=== PATIENT | female | born 1955 | race Caucasian/White ===

== ENCOUNTER → 2016-07-05 | Outpatient (CLI) | payer BC ==
[~2016-07-05] MED LIST: CLX20 PO; DTR5 PO; LOSA50TA6 PO; PANT40TA PO
--- NOTE | 2016-07-06 13:02 | MAMMOGRAPHY REPORT ---
BILATERAL DIGITAL SCREENING MAMMOGRAM WITH CAD: 07/05/2016 CLINICAL HISTORY: Routine screening. Patient has no complaints. TECHNIQUE: Bilateral CC and MLO views with repeat MLO views for more anterior compression were obtai gwen. Current study was also evaluated with a Computer Aided Detection (CAD) system. COMPARISON: Comparison is made to exams dated: 07/02/2015 mammogram - [facility], 06/23/2013 mammogram, 06/30/2012 mammogram, 02/01/2011 mammogram, 12/29/2009 mammogram, and 12/09/2008. BREAST COMPOSITION: There are scattered areas of fibroglandular density in both breasts. FINDINGS: There is a 12 mm lobulated mass in the upper inner anterior right breast that is unchange d mammographically dating back to at least 10/18/2006, therefore likely benign. No new suspicious ma ss, architectural distortion or cluster of microcalcifications is seen. IMPRESSION: ACR BI-RADS CATEGORY 2: BENIGN There is no mammographic evidence of malignancy. A 1 year screening mammogram is recommended. The p atient will receive written notification of the results. Approximately 10% of breast cancers are not detected with mammography. A negative mammographic repor t should not delay biopsy if a clinically suggestive mass is present. Corinne Manzo M.D. ay/:07/05/2016 15:16:00 Gem Carver: Brenna MALONE(Karyn)(Henri)(BD), [facility] letter sent: Normal 1/2 BI-RADS Code: ACR BI-RADS Category 2: Benign
== END | disposition home or self-care (01) ==
LOC: C.MAMM 14:41
PROVIDERS: ATTEND Internal Medicine
DX: Z12.31 Encounter for screening mammogram for malignant neoplasm of breast (principal)

== ENCOUNTER → 2016-09-24 | Outpatient (CLI) | payer BC ==
--- NOTE | 2016-09-24 08:19 | DIAGNOSTIC IMAGING REPORT ---
L-SPINE MIN 4 VIEWS ROUTINE CLINICAL HISTORY: Low back pain. Right leg weakness. COMPARISON STUDY: 12/27/2012 FINDINGS: There is a mild lumbar levoscoliosis. There are no acute fractures. There are mild multilevel degenerative changes. No subluxations are visualized. No destructive lesions are evident. IMPRESSION: Mild multilevel degenerative change. No fractures, subluxations, or destructive lesions are visualized Electronically signed by: Wu Allen M.D. 09/24/2016 8:17 AM Dictated Date/Time: 09/24/2016 8:17 AM
--- NOTE | 2016-09-24 08:21 | DIAGNOSTIC IMAGING REPORT ---
THORACIC SPINE 3 VIEWS ROUTINE CLINICAL HISTORY: Back pain. COMPARISON STUDY: 05/27/2013 FINDINGS: There are postsurgical changes present within the cervical spine. There is a mild spinal curvature convex to the right. There are no acute fractures. There are no subluxations. No destructive lesions are evident. There are mild multilevel degenerative changes. IMPRESSION: Mild multilevel degenerative change. No fractures, subluxations, or destructive lesions are visualized. Electronically signed by: Wu Allen M.D. 09/24/2016 8:20 AM Dictated Date/Time: 09/24/2016 8:20 AM
--- NOTE | 2016-09-24 08:22 | DIAGNOSTIC IMAGING REPORT ---
CHEST 2 VIEWS ROUTINE CLINICAL HISTORY: Cough, shortness of breath. COMPARISON STUDY: 10/10/2015 FINDINGS: The cardiac and mediastinal contours are normal. There is no evidence of focal pulmonary consolidation. There is no evidence of failure. No pleural effusions are visualized.[ There are postsurgical changes present within the cervical spine. IMPRESSION: No active disease in the chest. Electronically signed by: Wu Allen M.D. 09/24/2016 8:21 AM Dictated Date/Time: 09/24/2016 8:21 AM
--- NOTE | 2016-09-24 08:22 | DIAGNOSTIC IMAGING REPORT ---
CERVICAL SPINE 6 VIEWS HISTORY: Pain M54.9 Back [id number] COMPARISON: None. FINDINGS: The cervical spine is visualized from C1 through the superior endplate of T1. There is no fracture. No subluxation. Moderate degenerative disc change throughout read findings of an anterior cervical fusion C6-C7. Minimal osteophytic narrowing of the neuroforamina bilaterally from C5 through C7. IMPRESSION: Moderate degenerative and postoperative changes as described. No acute process. Electronically signed by: John Mo M.D. 09/24/2016 8:21 AM Dictated Date/Time: 09/24/2016 8:20 AM
== END | disposition home or self-care (01) ==
LOC: C.RAD 07:28
PROVIDERS: ATTEND Physician Assistant Medical
DX: R05 Cough (principal); M47.812 Spondylosis without myelopathy or radiculopathy, cervical region; M47.816 Spondylosis without myelopathy or radiculopathy, lumbar region; M47.814 Spondylosis without myelopathy or radiculopathy, thoracic region; Z98.1 Arthrodesis status

== ENCOUNTER → 2016-11-01 | Outpatient (CLI) | payer BC | END | disposition home or self-care (01) | LOC: C.PAPS 11:01 | PROVIDERS: ATTEND Physician Assistant | DX: Z01.419 Encounter for gynecological examination (general) (routine) without abnormal findings (principal) ==

== ENCOUNTER → 2017-01-27 | Outpatient (CLI) | payer BC ==
[2017-01-27 17:37] LABS: URINE APPEARANCE CLEAR (CLEAR); URINE BILIRUBIN NEG (NEG); URINE COLOR YELLOW; URINE NITRITE NEG (NEG); URINE PH 6.5 (4.5-7.5); URINE SPECIFIC GRAVITY 1.014 (1.000-1.030); UROBILINOGEN NEG (NEG)
[2017-01-27 17:46] LABS: MANUAL MICROSCOPIC REQUIRED? NO; REVIEW REQ? NO
== END | disposition home or self-care (01) ==
LOC: C.LABBFT 15:35
PROVIDERS: ATTEND Physician Assistant Medical
DX: R39.9 Unspecified symptoms and signs involving the genitourinary system (principal); K59.00 Constipation, unspecified

== ENCOUNTER → 2017-04-04 | Outpatient (CLI) | payer BC ==
--- NOTE | 2017-04-04 15:09 | DIAGNOSTIC IMAGING REPORT ---
MRI OF THE LUMBAR SPINE WITHOUT IV CONTRAST CLINICAL HISTORY: Low back pain of several months duration. Bilateral leg pain. COMPARISON STUDY: Radiographs of the lumbar spine dated 03/23/2017. TECHNIQUE: MRI of the lumbar spine is performed utilizing various T1 and T2-weighted sequences in the axial and sagittal planes. IV contrast was not administered for this examination. The examination is degraded by motion artifact. FINDINGS: Lumbar spine: Vertebral body height and alignment are maintained throughout the lumbar spine. Marrow signal intensity is heterogeneous. The transverse and spinous processes appear intact. There is no evidence of spondylolysis. There is degenerative endplate edema seen at L3-L4 and L5-S1. No destructive bony lesion is identified. Tiny anterior osteophytes are seen throughout. Intervertebral discs: Degenerative disc desiccation and loss of height is seen throughout the lumbar spine. Loss of height is obdk-ly-pzcjsqww at L3-L4 and L4-L5. Spinal cord: The partially imaged spinal cord is normal in morphology and signal intensity. The conus medullaris terminates at the level of L1. The nerve roots of the cauda equina are normal in morphology. L1-L2: Unremarkable. L2-L3: There is a tiny posterior disc osteophyte complex. The central canal and neural foramina are patent. L3-L4: There is broad-based posterior disc bulge and annular fissure. In conjunction with hypertrophy of the ligamentum flavum, this causes fxyaofwe-ob-bsegjt central canal stenosis at this level. The minimum AP diameter measures 5 mm. There is subarticular stenosis, and the disc bulge may abut the exiting bilateral L3 and the transiting bilateral L4 nerve roots. The neural foramina are patent. L4-L5: There is minimal posterior disc bulge. No significant central canal stenosis is seen. There is mild bilateral subarticular stenosis. The disc bulge may abut the transiting bilateral L5 nerve roots. The neural foramina are patent. L5-S1: The central canal is widely patent. Facet arthropathy causes xwlg-ir-xcxjhlcp left neural foraminal stenosis. Sacrum: The visualized sacrum is normal in morphology and signal intensity. Soft tissues: The paraspinous soft tissues are within normal limits. The partially imaged retroperitoneal structures are grossly unremarkable but incompletely assessed. IMPRESSION: 1. Degenerative disc disease as above with endplate edema at L3-L4 and L5-S1. 2. Lumbosacral spondylosis as above with awglcizt-zf-ofzxex central canal stenosis at L3-L4. See discussion for detailed uyhbw-oi-nulrw analysis. 3. No destructive bony lesion is identified. Dictated: 04/04/2017 2:45 PM Transcribed: 04/04/2017 3:09 PM MERVIN_Luna Electronically signed by: Poncho Perez M.D. 04/04/2017 3:17 PM Dictated Date/Time: 04/04/2017 2:45 PM
== END | disposition home or self-care (01) ==
LOC: C.MRI 13:14
PROVIDERS: ATTEND Orthopaedic Surgery Orthopaedic Surgery of the Spine
DX: M48.061 Spinal stenosis, lumbar region without neurogenic claudication (principal)

== ENCOUNTER → 2017-07-08 | Outpatient (CLI) | payer OTHER ==
--- NOTE | 2017-07-11 08:08 | MAMMOGRAPHY REPORT ---
BILATERAL DIGITAL SCREENING MAMMOGRAM TOMOSYNTHESIS WITH CAD: 07/08/2017 CLINICAL HISTORY: Routine screening. Patient has no complaints. TECHNIQUE: Breast tomosynthesis in addition to standard 2D mammography was performed. Current study was also evaluated with a Computer Aided Detection (CAD) system. COMPARISON: Comparison is made to exams dated: 07/05/2016 mammogram, 07/02/2015 mammogram - [facility], 06/23/2013 mammogram, 06/30/2012 mammogram, 02/01/2011 mammogram, and 12/29/2009 mammo gram. BREAST COMPOSITION: There are scattered areas of fibroglandular density in both breasts. FINDINGS: There is a benign, gently lobulated and circumscribed 12 mm mass in the 12:00 right breast , that is stable in size dating back to at least 12/29/2009, therefore likely benign. There is also stable asymmetry in the lateral right breast. No new suspicious mass, architectural distortion or clu ster of microcalcifications is seen. IMPRESSION: ACR BI-RADS CATEGORY 2: BENIGN There is no mammographic evidence of malignancy. A 1 year screening mammogram is recommended. The pa tient will receive written notification of the results. Approximately 10% of breast cancers are not detected with mammography. A negative mammographic report should not delay biopsy if a clinically suggestive mass is present. Corinne Manzo M.D. ay/:07/08/2017 15:01:30 Service Consultant: Ileana Armenta, [facility] letter sent: Normal 1/2 BI-RADS Code: ACR BI-RADS Category 2: Benign
== END | disposition home or self-care (01) ==
LOC: C.MAMM 14:37
PROVIDERS: ATTEND Internal Medicine
DX: Z12.31 Encounter for screening mammogram for malignant neoplasm of breast (principal)

== ENCOUNTER 2017-09-22 08:17 | Observation (INO) | payer OTHER ==
[2017-09-02 08:07] VITALS: Ht 165.1 cm; Wt 105.4 kg
--- NOTE | 2017-09-02 08:36 | PAT Medication Instructions ---
Service Date Sep 02, 2017. Current Home Medication List Citalopram (Citalopram Hydrobromide), 20 MG PO QAM Hydrochlorothiazide (Hctz), 25 MG PO QAM Losartan Potassium (Cozaar), 100 MG PO QAM Oxybutynin Chloride (Oxybutynin Chloride), 5 MG PO QAM Pantoprazole (Protonix), 2 TAB PO QAM Medication Instructions For Your Scheduled Surgery - Hold the following medications the morning of surgery: Hydrochlorothiazide (Hctz), 25 MG PO QAM Losartan Potassium (Cozaar), 100 MG PO QAM Oxybutynin Chloride (Oxybutynin Chloride), 5 MG PO QAM - Take the following medications the morning of surgery with a sip of water: Citalopram (Citalopram Hydrobromide), 20 MG PO QAM Pantoprazole (Protonix), 2 TAB PO QAM If you have any questions please call us at [phone] or [phone] or [phone]
[2017-09-02 09:27] LABS: BASO % 0.6 %; BASO ABS # 0.04 K/uL (0-0.2); EOS % 2.4 %; EOS ABS # 0.15 K/uL (0-0.5); HEMATOCRIT 45.3 % (37-47); HEMOGLOBIN 15.5 g/dL (12.0-16.0); IG# 0.01 K/uL (0.00-0.02); LYMPH % 29.3 %; LYMPH ABS # 1.83 K/uL (1.2-3.4); MEAN CORPUSCULAR HEMOGLOBIN 30.1 pg (25-34); MEAN CORPUSCULAR HGB CONC 34.2 g/dl (32-36); MEAN PLATELET VOLUME 11.6 fL (7.4-10.4); MONO % 8.6 %; MONO ABS # 0.54 K/uL (0.11-0.59); NEUT % 58.9 %; NEUT ABS # 3.68 K/uL (1.4-6.5); PLATELET COUNT 258 K/uL (130-400); RED CELL DISTRIBUTION WIDTH CV 13.8 % (11.5-14.5); RED CELL DISTRIBUTION WIDTH SD 44.8 fL (36.4-46.3); WHITE BLOOD COUNT 6.25 K/uL (4.8-10.8)
[2017-09-02 09:43] LABS: INR 0.9 (0.9-1.1); PTT PATIENT 25.1 SECONDS (21.0-31.0)
--- NOTE | 2017-09-21 19:13 | HISTORY & PHYSICAL EXAMINATION ---
DATE OF ADMISSION: 09/22/2017 CHIEF COMPLAINT: Back pain, lower extremity difficulty, numbness and tingling, paresthesias with a working diagnosis of severe stenosis 3-4 and 4-5. Shalonda is delightful 61 years of age. She has battled the extremity difficulty for some time along with mechanical low back pain. She is an excellent candidate for surgical intervention. We have exhausted all conservative measures. She would like to pursue surgery. PAST MEDICAL HISTORY: Rheumatoid arthritis, hypertension, obesity. PAST SURGICAL HISTORY: Cervical spine surgery. ALLERGIES: Negative. FAMILY HISTORY: Heart disease and cervical carcinoma. SOCIAL HISTORY: She is . No alcohol, tobacco. Moderately active. REVIEW OF SYSTEMS: A 12 system review no fevers, sweats, chills. Ear, nose and throat negative. Denies chest pain, palpitations. No nausea, vomiting. She has had frequency of urination, but no loss of bowel or bladder function. Denies memory loss, confusion, skin rashes. Musculoskeletal is positive. Neurological positive for numbness and tingling, weakness to the extremities. MEDICATIONS: Hydrocodone, Motrin as anti-inflammatory. OBJECTIVE: GENERAL: She is in moderate distress, conversant, alert, oriented. VITAL SIGNS: She is 5 feet 5 inches, 230 pounds. Blood pressure listed at 138/74. Pulse is 80 beats per minute, right radial. HEENT: Pupils reactive to light and accommodation. Ear, nose and throat clear. CARDIAC: Normal S1, S2. Distant S3. LUNGS: Clear to auscultation. No rales, rhonchi, wheezing. EXTREMITIES: She has pain with flexion, pain with extension and percussion, slight gait abnormality. Slight weakness of quadriceps. Reflexes are decreased as well on the knee jerk and Achilles. IMAGES: Reviewed demonstrate severe stenosis 3-4 and 4-5 lumbar spine. 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 PLAN: Includes instructions, precautions, education and we scheduled her for surgery, lumbar spine laminectomy, fusion L3-L4, L4-L5 under general anesthetic. She is well versed, intelligent questions. We will schedule for surgery under general anesthetic.
[2017-09-22] VITALS (8 sets, daily range): BP systolic 115–162; BP diastolic 70–80; PULSE 76–105; TEMP 36.5–37; O2SAT 95–100
[~2017-09-22] VITALS: Ht 165.1 cm; Wt 105.4 kg
[~2017-09-22 08:17] MED LIST changes: +CEFAZOLIN 2000MG IV PUSH 15 ML IV SCH; +HYDR25TA4 PO; +LACTATED RINGER'S 1000ML 1,000 ML IV SCH; +LOSA100T65 PO; -LOSA50TA6 PO; +NSS 1000ML IV SCH
[2017-09-22] MEDS ORDERED: MIDAZOLAM HCL 1 MG/ML 2ML VIAL ONE (10:59)
[2017-09-22] MEDS ORDERED: FENTANYL CITRATE INJ 50 MCG/1 ML 2 ML VIAL ONE (11:00)
[2017-09-22] MEDS ORDERED: GELATIN SPONGE SZ 100 ONE ×2 (11:44→11:51)
[2017-09-22] MEDS ORDERED: THROMBIN FOR SOLN 20000 UNIT KIT ONE ×2 (11:44→11:51)
[2017-09-22] MEDS ORDERED: VANCOMYCIN HCL 1000MG/20ML VIAL ONE ×2 (11:44→11:51)
--- NOTE | 2017-09-22 11:44 | History & Physical Bridge Note ---
H&P Re-Evaluation Bridge Note: I have examined the patient, reviewed the History & Physical and in the interval since the performance of the History & Physical I have noted the following changes of clinical significance: No changes noted
[2017-09-22] MEDS ORDERED: BACITRACIN 50000 UNIT VIAL ONE ×2 (11:45→11:51)
[2017-09-22] MEDS ORDERED: BUPIVACAINE 0.5 % 5 MG/1 ML MPF 30ML VIAL ONE ×2 (11:52)
[2017-09-22] MEDS ORDERED: HYDROmorphone INJ 0.5 MG/0.5 ML SYR IV PRN ×2 (12:15→14:15)
[2017-09-22] MEDS ORDERED: EpHEDrine SULFATE INJ 50 MG/ML AMP IV PRN (12:15)
[2017-09-22] MEDS ORDERED: ATROPINE SULFATE 0.1 MG/ML 5ML SYR IV PRN (12:15)
[2017-09-22] MEDS ORDERED: NALOXONE HCL 0.4 MG/1 ML VIAL/CARP IV PRN (12:15)
[2017-09-22] MEDS ORDERED: ONDANSETRON INJ 2 MG/ML 2 ML VIAL IV PRN ×2 (12:15→14:15)
[2017-09-22] MEDS ORDERED: PROMETHAZINE HCL INJ 12.5 MG in SODIUM CHLORIDE 0.9% 50ML 50 ML IV PRN ×2 (12:15→14:15)
[2017-09-22] MEDS ORDERED: FLUMAZENIL 0.1 MG/1 ML 10 ML VIAL IV PRN (12:15)
[2017-09-22] MEDS ORDERED: LABETALOL HCL IV 5 MG/ML 20ML IV PRN (12:15)
[2017-09-22] MEDS ORDERED: LIDOCAINE HCL 2% 2 ML VIAL (20MG/ML) ONE (12:31)
[2017-09-22] MEDS ORDERED: PROPOFOL IV EMULSION 10 MG/ML 20 ML VIAL ONE (12:31)
[2017-09-22] MEDS ORDERED: EpHEDrine SULFATE 50MG/5ML SYR ONE (12:31)
[2017-09-22] MEDS ORDERED: ONDANSETRON INJ 2 MG/ML 2 ML VIAL ONE (12:31)
[2017-09-22] MEDS ORDERED: ROCURONIUM BROMIDE 10 MG/ML 5 ML VIAL ONE (12:31)
[2017-09-22] MEDS ORDERED: DEXAMETHASONE SOD INJ 4 MG/ML VIAL ONE (12:31)
[2017-09-22] MEDS ORDERED: GLYCOPYRROLATE INJ 0.2 MG/ML VIAL ONE (13:23)
[2017-09-22] MEDS ORDERED: NEOSTIGMINE METHYLSULFATE 1 MG/ML 10ML VIAL ONE (13:23)
[2017-09-22] MEDS ORDERED: SUCCINYLCHOLINE 100MG/5ML SYR IV ONE (13:39)
--- NOTE | 2017-09-22 13:52 | DIAGNOSTIC IMAGING REPORT ---
SPINE ONE VIEW, ANY LEVEL CLINICAL HISTORY: 61 years-old Female presenting with LUMBAR SPINE SURGERY. TECHNIQUE: 1 fluoroscopic image(s) recorded as part of an intraoperative procedure. COMPARISON: 08/19/2017. FINDINGS/IMPRESSION: Surgical hardware projects over the interspinous region of the lower lumbar spine. Grossly normal anatomic alignment. Please see surgical report for further details. Fluoroscopy dosage (mGy): 2.55. Fluoroscopy time: 2.7 seconds. Number of fluoroscopic spot images: 0. Electronically signed by: Wm Jones M.D. 09/22/2017 1:51 PM Dictated Date/Time: 09/22/2017 1:50 PM
--- NOTE | 2017-09-22 13:57 | [facility] Post Operative Brief Note ---
Immediate Operative Summary Operative Date September 22, 2017. Pre-Operative Diagnosis Severe stenosis L3-L4 and L4-L5 lumbar spine Post-Operative Diagnosis Severe stenosis L3-L4 and L4-L5 lumbar spine Procedure(s) Performed L3-L5 Laminectomy and Posterior Lateral Fusion Without Implants; Allograft Surgeon Dr. Oscar Ramsey Manufacturing Engineering Technologist Surgeon(s) Frank Saul PA-C Estimated Blood Loss 150ml Findings Consistent with Post-Op Diagnosis Specimens None per surgeon Anesthesia Type General Complication(s) none
[2017-09-22] MEDS ORDERED: CEFAZOLIN IV 1,000 MG in DEXTROSE 5% 50ML 50 ML IV SCH (14:15)
[2017-09-22] MEDS ORDERED: ACETAMINOPHEN 325 MG TAB PO PRN (14:15)
[2017-09-22] MEDS ORDERED: HYDROmorphone INJ 2 MG/ML SYR/VIAL IV PRN (14:15)
[2017-09-22] MEDS ORDERED: METOCLOPRAMIDE HCL INJ 5 MG/ML 2 ML VIAL IV PRN (14:15)
[2017-09-22] MEDS ORDERED: LORAZEPAM 1 MG TAB PO PRN (14:15)
[2017-09-22] MEDS ORDERED: LORAZEPAM INJ 1 MG in SYRINGE 0 ML IV PRN (14:15)
[2017-09-22] MEDS ORDERED: MAGNESIUM HYDROXIDE SUSP 30 ML UDC PO PRN (14:15)
[2017-09-22] MEDS ORDERED: OXYCODONE/ACETAMINOPHEN 5-325 TAB PO PRN ×2 (14:15)
[2017-09-22] MEDS ORDERED: IV FLUIDS COMPLETED PRN (14:30)
--- NOTE | 2017-09-22 14:38 | OPERATIVE REPORT ---
DATE OF OPERATION: 09/22/2017 PREOPERATIVE DIAGNOSES: Spinal stenosis, L3, L4, L5. Slight degenerative scoliosis, L3, L4, L5. POSTOPERATIVE DIAGNOSES: Same. PROCEDURE: Lumbar laminectomy L3, L4, and L5 and a posterior lateral fusion, L3, L4, and L5. SURGEON: Oscar Ramsey DO. BUTT MAKER: Frank Saul PA-C. COMPLICATIONS: Zero. ESTIMATED BLOOD LOSS: 150. DESCRIPTION OF PROCEDURE: The patient was taken to the operating room. A general intubated anesthetic provided to the patient, placed prone, prepped and draped sterile. We did make a skin incision, fascial incision, put in a deep self-retaining retractor. The patient was fairly obese, but the distance from the skin to her lamina was approximately 3 inches. We decompressed the neural elements meticulously, particularly took off all lamina L5, L4, and L3, foraminotomies, partial facetectomies, removal of a lot of ligamentum flavum. I was pleased with the overall decompression. I felt that there was some minor instability with the scoliosis and slight incompetency of the facet joints, but I did not think there was a gross instability. She had no spondylolisthesis, significant scoliosis, and the disk spaces were well preserved. We did go and made the decision with a posterior lateral fusion. Irrigated with approximately 500 mL. Closed fascia to fascia over vancomycin powder and over a Hemovac drain, 2-0 in the subcuticular layer, 3-0 on the skin, sterile dressing applied. Sponge and needle counts correct at the close. EBL 150. I attest to the content of the Intraoperative Record and any orders documented therein. Any exception s are noted below.
[2017-09-22 14:59] LABS: HEMATOCRIT 39.1 % (37-47); HEMOGLOBIN 13.4 g/dL (12.0-16.0)
--- NOTE | 2017-09-22 15:03 | Anesthesiology Progress Note ---
Anesthesia Post Op Note Date & Time September 22, 2017 at 15:03 Vital Signs Pain Intensity: 0 Vital Signs Past 12 Hours Date Time Temp Pulse Resp B/P (MAP) Pulse Ox O2 Delivery O2 Flow Rate FiO2 09/22/17 14:45 85 16 150/77 91 Nasal Cannula 4 09/22/17 14:35 89 16 143/81 94 Nasal Cannula 4 09/22/17 14:25 91 20 156/87 96 Oxymask 10 09/22/17 14:15 95 22 138/82 99 Oxymask 10 09/22/17 14:05 36.8 107 14 179/81 94 Oxymask 10 09/22/17 09:01 36.6 76 18 162/71 95 Room Air Notes Mental Status: alert / awake / arousable, participated in evaluation Pt Amnestic to Procedure: Yes Nausea / Vomiting: adequately controlled Pain: adequately controlled Airway Patency, RR, SpO2: stable & adequate BP & HR: stable & adequate Hydration State: stable & adequate Anesthetic Complications: no major complications apparent
[2017-09-22] MEDS: KETOROLAC TROMETHAMINE 30 MG/ML VIAL IV SCH ×2 (15:50→21:41)
[2017-09-22] MEDS: DEXAMETHASONE INJ 10 MG in SYRINGE 0 ML IV SCH ×2 (17:01→23:52)
[2017-09-22] MEDS: CEFAZOLIN IV 2,000 MG in SYRINGE 0 ML IV SCH (19:49)
[2017-09-22] MEDS: SODIUM CHLORIDE 0.9% 1000ML 1,000 ML IV SCH (23:52)
[2017-09-23 03:45] VITALS: BP 138/74; PULSE 88; TEMP 37; O2SAT 94
[2017-09-23] MEDS: CEFAZOLIN IV 2,000 MG in SYRINGE 0 ML IV SCH ×2 (04:14→12:10)
[2017-09-23] MEDS: KETOROLAC TROMETHAMINE 30 MG/ML VIAL IV SCH ×3 (04:17→15:48)
[2017-09-23] MEDS ORDERED: BISACODYL 10 MG SUPP PR PRN (06:00)
[2017-09-23] MEDS ORDERED: BISACODYL 5 MG TABEC PO PRN (06:00)
[2017-09-23] MEDS ORDERED: HYDR-4383 PO (07:08)
--- NOTE | 2017-09-23 07:10 | Discharge Instructions ---
Discharge Instructions Date of Service September 23, 2017. Admission Reason for Admission: Lumbar Spinal Stenosis Discharge Discharge Diagnosis / Problem: same Discharge Goals Goal(s): Improve function Activity Recommendations Activity Limitations: as noted below Lifting Limitations: gradually increase as tolerated May Resume Sexual Activity: after follow-up appointment Shower/Bathe: keep incision dry . Instructions / Follow-Up Instructions / Follow-Up MEDICATIONS: Please take your prescriptions as instructed at your pre-op appointment. SPECIAL CARE: The following information is intended to answer some of the common questions and concerns regarding your surgery. Each patient is an individual and receives individual counselling throughout the course of treatment, from diagnosis to surgery all the way through recovery. What follows is not an exhaustive list, but should be a useful guide to some of the common questions and concerns patients have regarding their surgeries. These are not provided to keep you from calling us; rather, they give you something accurate and concrete to reference as you recover from your procedure. If you need us, we are available to you. As always, if you are not sure about something, call us at [phone]. MEDICAL EMERGENCIES: For these conditions, call 911 or go to your local hospital-based Emergency Department - not [facility] or equivalent. * Paralysis * Severe chest pain or difficulty breathing * Swelling or redness of either leg Spine procedures can be rather complex and though complications are rare, they do occur. In such cases, effective advice regarding emergency situations cannot always be addressed over the telephone. You may be referred to the emergency department for more effective management of your problem. Activity Limitations: It is important to give your body time to heal, so please limit your activities : * In general, don't do anything that moves your spine too much. You should avoid contact sports, twisting or heavy lifting while you recover. * 5-10 pounds is all you should attempt to lift. * You should not plan on driving for approximately 3 weeks and you should avoid traveling more than 30-45 minutes at a time. Longer trips should be broken down with walking breaks spaced appropriately. * Physical therapy is not usually required. * Walking and good posture practices will help you recover and regain your function. * Avoid straining or sudden changes in position. * In general, the goal is to take it easy and recover. Don't cause any new problems. Just relax. Showers: * Do not take a bath, use a Jacuzzi or hot tub or otherwise submerge your incision. * It is usually safe to take a shower 4-5 days after your surgery. * Your incision does not require any special creams or ointments. * Simply clean it with soap and water, dry and re-dress with a clean bandage afterwards. Incision: * Keep incision clean, dry and protected until your first follow-up appointment. * Some amount of drainage and redness is normal. Any drainage should be fairly clear and not have a foul odor. * If you feel anything is wrong or you have excessive drainage, please call us. * Your stitches and maryann will be removed 10-14 days after your surgery. At the time of your first post-op visit. * Neck surgeries are typically closed with a suture underneath the skin. The steri-strips over the incision should be maintained until we see you in the office. Bracing: * You may be provided with a back or neck brace to encourage good posture and prevent injury. It will remind you not to do too much as you heal and will alert others to the fact that you have had a surgery. * Back braces may be removed for showers and when you are resting at home. They must be worn when you are walking around for any period of time or for travel. * For neck surgery, you will likely be provided with two cervical collars. The soft collar ([place] or foam rubber) is worn most commonly throughout the day and while sleeping. The plastic collar (provided at the hospital) is for showering/bathing. * Except while eating, collars should remain in place. More specifically, bracing is provided for a purpose and should be worn. * Please obtain your brace or collars prior to your operation and bring them to the hospital with you on the day of surgery. * You should also bring your collars to your post-op appointment with Dr. Ramsey. You should always take good care of your body and practice healthy habits, especially following surgery. You should: * Follow your doctor's treatment plan * Sit and stand properly with good posture (ears over shoulders, shoulders over hips) Don't slouch * Learn to lift correctly * Exercise regularly (low-impact aerobic exercise is especially good, but check with your doctor first) * Generally, be up and walking for 5-10 minutes at a time at least 3-4 times per day from the day you get home * Increasing walking to tolerance until you can walk for 20-30 minutes at a time * Attain and maintain a healthy body weight * Eat healthy foods ( a well-balanced, low-fat diet rich in fruits and vegetables) and get enough calcium * Avoid excessive use of alcohol When to call our office - If you notice any of the following: * Increased pain not relieve by pain medicine * Fevers greater then 100 degrees F, chills or flu symptoms * Increased redness around incision * Drainage from the incision that is not clear * Any foul smelling drainage * Swelling or fluid collection beneath the skin Miscellaneous: * In the hospital, you may be given a walker or cane for support while walking. These are temporary needs and are intended to prevent injuries due to falls. You may discontinue them when you feel strong and steady enough on your feet. * Sleep in a comfortable position. We find that many patients find a lounge chair or recliner with several pillows to be beneficial in the early post-operative period. * The support stockings should be used for 7-10 days and may be discontinued when you are back to walking more and conducting usual household activities. No problem is insignificant. We are here to help you and get you well. Contact us at [phone]. Definitions: Foraminotomy: If part of the disc or a bone spur (osteophyte) is pressing on a nerve as it leaves the vertebra (through an exit called the foramen), a foraminotomy may be done. Otomy means "to make an opening." A foraminotomy is making the opening of the foramen larger, so the nerve can exit without being compressed. Laminotomy: Similar to the foraminotomy, a laminotomy makes a larger opening, this time in your bony plate protecting your spinal canal and spinal cord (the lamina). The lamina may be pressing on your nerve, so the surgeon may make more room for the nerves using a laminotomy. Laminectomy: Sometimes, a laminotomy is not sufficient. The surgeon may need to remove all or part of the lamina. This procedure is called a laminectomy. This can often be done at many levels without any harmful effects. Current Hospital Diet Patient's current hospital diet: Regular Diet Discharge Diet Recommended Diet: Regular Diet Procedures Procedures Performed: L3-L5 Laminectomy and Posterior Lateral Fusion Without Implants; Allograft Pending Studies Studies pending at discharge: no Medical Emergencies . Who to Call and When: Medical Emergencies: If at any time you feel your situation is an emergency, please call 911 immediately. . Non-Emergent Contact Non-Emergency issues call your: Primary Care Provider . "Provider Documentation" section prepared by Oscar Ramsey. .
[2017-09-23 07:15] VITALS: BP 136/71; PULSE 82; TEMP 37.2; O2SAT 94
--- NOTE | 2017-09-23 07:50 | Anesthesiology Progress Note ---
Anesthesia Post Op Note Date & Time September 23, 2017 at 07:49 Vital Signs Pain Intensity: 0.0 Vital Signs Past 12 Hours Date Time Temp Pulse Resp B/P (MAP) Pulse Ox O2 Delivery O2 Flow Rate FiO2 09/23/17 07:15 37.2 82 17 136/71 (92) 94 Room Air 09/23/17 03:45 37.0 88 16 138/74 (95) 94 Nasal Cannula 3.0 09/22/17 23:40 36.7 101 16 118/75 (89) 95 Nasal Cannula 3.0 09/22/17 20:25 37.0 105 16 154/78 (103) 96 Nasal Cannula 3.0 Notes Mental Status: alert / awake / arousable, participated in evaluation Pt Amnestic to Procedure: Yes Nausea / Vomiting: adequately controlled Pain: adequately controlled Airway Patency, RR, SpO2: stable & adequate BP & HR: stable & adequate Hydration State: stable & adequate Anesthetic Complications: no major complications apparent
[2017-09-23 08:03] VITALS: O2SAT 94
[2017-09-23] MEDS: DEXAMETHASONE INJ 10 MG in SYRINGE 0 ML IV SCH ×2 (08:18→15:48)
[2017-09-23] MEDS ORDERED: CITALOPRAM 20 MG TAB PO SCH (09:00)
[2017-09-23] MEDS ORDERED: POLYETHYLENE (MIRALAX) 17 GM PACK PO SCH (09:00)
[2017-09-23] MEDS ORDERED: OXYBUTYNIN CHLORIDE 5 MG TAB PO SCH (09:00)
[2017-09-23] MEDS ORDERED: LOSARTAN POTASSIUM 50 MG TAB PO SCH (09:00)
[2017-09-23] MEDS ORDERED: PANTOprazole SOD 40 MG TAB PO SCH (09:00)
[2017-09-23] MEDS ORDERED: HYDROCHLOROTHIAZIDE 25 MG TAB PO SCH (09:00)
[2017-09-23 11:14] VITALS: BP 132/72; PULSE 93; TEMP 37.1; O2SAT 94
[2017-09-23] MEDS: SODIUM CHLORIDE 0.9% 1000ML 1,000 ML IV SCH ×2 (12:10→14:19)
[2017-09-23 15:26] VITALS: BP 113/54; PULSE 99; TEMP 37; O2SAT 91
[2017-09-23 16:07] VITALS: BP 113/54; PULSE 99; TEMP 37; O2SAT 91
--- NOTE | 2017-09-24 11:57 | DISCHARGE SUMMARY ---
She was alert and oriented. No chest pain, shortness of breath or confusion. Afebrile. Wound dry. ASSESSMENT: Spinal stenosis surgery, doing well. Short run. PLAN: Includes discharge home on Tuesday the , improved, stable condition. She uses a walker for support. She uses medications. She has a followup appointment. We had given her significant amount of instructions preoperatively and here at the hospital.
== END 2017-09-23 16:45 | disposition home or self-care (01) ==
LOC: C.ACU 08:17 → C.3E 11:30 → ENRESERV 14:51
PROVIDERS: ADMIT Orthopaedic Surgery Orthopaedic Surgery of the Spine; ATTEND Orthopaedic Surgery Orthopaedic Surgery of the Spine
DX: M48.061 Spinal stenosis, lumbar region without neurogenic claudication (principal); M41.9 Scoliosis, unspecified; I10 Essential (primary) hypertension; K21.9 Gastro-esophageal reflux disease without esophagitis; M06.9 Rheumatoid arthritis, unspecified; E66.9 Obesity, unspecified; Z68.38 Body mass index [BMI] 38.0-38.9, adult